=== PATIENT | male | born 1945 | race Caucasian/White ===

== ENCOUNTER 2016-10-13 15:49 | Emergency (ER) | payer MEDICARE ==
[2016-10-13] MEDS ORDERED: HYDROcodone/Acetaminophen 5/325 mg Tablet ONE (17:05)
--- NOTE | 2016-10-13 17:10 | ERRECORD ---
[facility] EMERGENCY RECORD HPI FALL (16:03 SHAN) CHIEF COMPLAINT: Patient presents for evaluation of fall, Patient presents for evaluation of tripped and fell with pain and bruising to right hand and wrist, is an area injured in the past. Occurred this am about 11:00. HISTORIAN: History provided by patient, History provided by patient's family. QUALITY: Pain is dull in nature. TIME COURSE: Sudden onset of symptoms. SEVERITY: Maximum severity of symptoms moderate, Currently symptoms are moderate. RELIEVED BY: Patient's condition relieved by nothing. ROS (16:05 SHAN) CONSTITUTIONAL: Negative constitutional review of systems. EYES: Negative eye review of systems. ENT: Negative ears, nose, throat review of systems. CARDIOVASCULAR: Negative cardiovascular review of systems. RESPIRATORY: Negative respiratory review of systems. GI: Negative gastrointestinal review of systems. MUSCULOSKELETAL: right wrist and hand pain. SKIN: Negative skin review of systems. NEUROLOGIC: Negative neurologic review of systems. NOTES: All systems reviewed, negative except as described above. PAST MEDICAL HISTORY (16:00 [facility] [place] MEDICAL HISTORY: Flu vaccine up to date, Tetanus immunization up to date, Pneumococcal vaccine up to date, Past medical history includes musculoskeletal disorder, fracture to the right radius, fracture to the right wrist, Past medical history includes cardiac history, coronary artery disease, CHF, history of diabetes, on insulin, hypertension, which has been treated, Patient is compliant, history of malignancy, primary site colon, treated with surgery, COLON RESECTION,history includes pulmonary disease, chronic obstructive pulmonary disease., SLEEP APNEA. history of hyperlipidemia, high cholesterol, currently being treated, cardiac ablation (09/2015). hx of pneumonia. MALE SURGICAL HISTORY: COLON RESECTION. , SMALL INTESTINE,COLON, RT ARM VEIN REMOVAL. PSYCHIATRIC HISTORY: No previous psychiatric history. SOCIAL HISTORY: Patient denies alcohol use, Patient denies drug use, Patient is a former tobacco user. Patient is a former tobacco user, smoked cigarettes, Patient quit smoking more than 10 years ago, Tobacco history notes: QUIT 1999,., Lives at home, with family. FAMILY HISTORY: Family history is non-contributory to this case. KNOWN ALLERGIES No Known Allergies (Unconfirmed) No Known Drug Allergies &a-1R&a+25V*p+0X*j4718C*c202B*c15G*c2P*p-0X&a-25V&a+1R Name: Sherlyn Cruz : 1945 M71 MedRec: [id number] AcctNum: [id number] Prepared: SunOct 13, 2016 17:24 by Interface Page 1 of 4 pMD [facility] EMERGENCY RECORD CURRENT MEDICATIONS (16:17 MSPE) Adult Low Dose Aspirin: TABLET : Strength - 81 mg : ORAL Patient Dose: 81 mg Oral once a day (in the evening). albuterol: AEROSOL (GRAM) : Strength - 90 mcg : INHALATION Patient Dose: 2 puff(s) Inhaler 4 times a day. fenofibrate: TABLET : Strength - 160 mg : ORAL Patient Dose: 1 tab(s) Oral once a day. furosemide: TABLET : Strength - 40 mg : ORAL Patient Dose: 1 tab(s) Oral 3 times a day. gabapentin: TABLET : Strength - 600 mg : ORAL Patient Dose: 300 mg Oral 3 times a day. hydrALAZINE: TABLET : Strength - 25 mg : ORAL Patient Dose: 2 tab(s) Oral 3 times a day. Lantus: VIAL (ML) : Strength - 100 unit/mL : SUBCUTANEOUS Patient Dose: 40 units Subcutaneous once a day (in the evening). lovastatin: TABLET : Strength - 20 mg : ORAL Patient Dose: 1 tab(s) Oral once a day (at bedtime). Spiriva with HandiHaler: CAPSULE, WITH INHALATION DEVICE : Strength - 18 mcg : INHALATION Patient Dose: 1 puff(s) Inhaler once a day. traMADol: TABLET : Strength - 50 mg : ORAL Patient Dose: 1 tab(s) Oral every 8 hours PRN. meloxicam: TABLET : Strength - 7.5 mg : ORAL Patient Dose: 1 tab(s) Oral once a day. Victoza 2-Shamar: PEN INJECTOR (ML) : Strength - 0.6 mg/0.1 mL (18 mg/3 mL) : [3 mL(s)] : SUBCUTANEOUS Patient Dose: 1.8 mg Subcutaneous once a day (in the morning). Oxygen 3L/NC 24 hours a day VITAL SIGNS VITAL SIGNS: Temp: 96.7 (Oral), Time: 10/13/2016 15:54. (15:54 MCBE) BP: 166/83, Pulse: 67, Resp: 20, O2 sat: 90 on Room Air, Time: 10/13/2016 15:57. (15:57 MCBE) Pain: 5, Time: 10/13/2016 16:05. (16:05 MCBE) Pulse: 69, Resp: 20, O2 sat: 95 on 3L Oxygen, Time: 10/13/2016 16:08. &a-1R&a+25V*p+0X*q9435Y*c202B*c15G*c2P*p-0X&a-25V&a+1R Name: Sherlyn Cruz : 1945 M71 MedRec: [id number] AcctNum: [id number] Prepared: SunOct 13, 2016 17:24 by Interface Page 2 of 4 pMD [facility] EMERGENCY RECORD (16:08 MSPE) BP: 144/86, Pulse: 68, Resp: 22, Temp: 97.9, Pain: 3, O2 sat: 94 on 3L, Time: 10/13/2016 17:13. (17:13 MCBE) PHYSICAL EXAM (16:05 SHAN) CONSTITUTIONAL: Patient afebrile, Pulse normal, Blood pressure normal, Respiratory rate normal, Normal pulse oximetry, Patient appears non toxic, Patient appears pain free, Patient alert and oriented to person, place and time, Nursing notes reviewed. HEAD: Head exam included findings of head atraumatic, normocephalic. EYES: Eye exam included findings of eyelids normal to inspection, Pupils equally round and reactive to light, Extraocular muscles intact. ENT: Pharynx exam normal, Uvula exam normal, Tonsil exam normal. NECK: Neck exam included findings of normal range of motion, Trachea midline. RESPIRATORY CHEST: Respiratory and chest exam normal. CARDIOVASCULAR: Cardiovascular exam included findings of heart rate regular rate and rhythm, Heart sounds normal. ABDOMEN MALE: Abdominal exam included findings of abdomen nontender, Bowel sounds normal. BACK: Back exam normal. UPPER EXTREMITY: Chronic deformity of right wrist; now with new bruising to hand and wrist. NEURO: Neuro exam normal. SKIN: Skin exam normal. MEDICATION ADMINISTRATION SUMMARY Drug Name: [place], Dose Ordered: 1 tab(s), Route: Oral, Status: Given, Time: 17:08 10/13/2016, Detailed record available in Medication Service section. 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 Prior history includes: Chronic obstructive pulmonary disease. Chronic cor pulmonale. Diabetes mellitus type 2. Hypertension. Dyslipidemia. Chronic venous insufficiency in the lower extremities. Ventricular tachycardia status post radiofrequency ablation. Morbid obesity. (16:07 RYLEE) History more specific to right wrist involves falling off a bull dozer in 2000, fx of right wrist; seen by physician about six days later; then infection in the area, chronic wrist deformity. x-rays today show the old deformity and also what appears to be a new fx of the right 5th metacarpal. (16:39 RYLEE) DATA REVIEWED: Xray data reviewed. (16:39 RYLEE) &a-1R&a+25V*p+0X*s2422F*c202B*c15G*c2P*p-0X&a-25V&a+1R Name: Sherlyn Cruz : 1945 M71 MedRec: [id number] AcctNum: [id number] Prepared: SunOct 13, 2016 17:24 by Interface Page 3 of 4 pMD [facility] EMERGENCY RECORD PROBLEM LIST No recorded problems DIAGNOSIS (16:43 RYLEE) FINAL: PRIMARY: right 5th metacarpal fracture, mid shaft, closed, spiral, ADDITIONAL: old complex right distal radial fx with deformity. PRESCRIPTION (16:42 RYLEE) Ultram: TABLET : 50 mg : ORAL : Quantity: 1 Unit: tab(s) Route: ORAL Schedule: every 4 hours prn Dispense: 30 Unit: tab(s) May substitute. Refills: No Refills . NOTES: No Refills. DISPOSITION PATIENT: Disposition Type: Discharge, Disposition: *Discharge Home. (16:43 RYLEE) Patient left the department. (17:18 [facility] [place] Aguilar: COREY=Carmel Lino=MARISOL Huerta, Lida MCKEE=MD Edge Stanley &a-1R&a+25V*p+0X*[id number]*c202B*c15G*c2P*p-0X&a-25V&a+1R Name: Sherlyn Cruz : 1945 M71 MedRec: [id number] AcctNum: [id number] Prepared: SunOct 13, 2016 17:24 by Interface Page 4 of 4 pMD MTDD
--- NOTE | 2016-10-13 17:12 | PICIS ---
[facility] EMERGENCY RECORD TRIAGE (15:56 MCBE) TRIAGE NOTES: wrist broke on 2000. obvious deformity. (15:56 MCBE) PATIENT: NAME: Sherlyn Cruz, AGE: 71, GENDER: male, : Sun1945, TIME OF GREET: SunOct 13, 2016 15:51, PREFERRED LANGUAGE: Sami, ETHNICITY: Not or , ECODE BILLING MAP: [facility], SSN: [id number], Zip Code: [address], KG WEIGHT: [phone], PHONE: , , , PERSON ID: [id number]. (15:56 MCBE) COMPLAINT: RIGHT WRIST INJURY//FALL. (15:56 MCBE) ADMISSION: URGENCY: 4 Non Urgent, ADMISSION SOURCE: Home, TRANSPORT: CAR, BED: ER -02. (15:56 MCBE) ASSESSMENT: Assessment: right hand/ wrist is deformed. patient states he fell this morning around 1100. denies loc or any other complications, Symptoms began 10/12/2016. (16:00 MCBE) SIRS SCORING: Heart Rate 55-109 (0), Temp range 96.8-101.1 (0), respiratory rate 12-24 (0), Mental Status altered: no (0), Infection or Suspected Infection: No. (16:00 MCBE) TRIAGE SCREENING: Patient denies suicidal ideation, Patient denies presence of domestic violence. (16:00 MCBE) PROVIDERS: TRIAGE NURSE: Carmel Lino. (15:56 MCBE) VITAL SIGNS: Temp 96.7, (Oral), Time 10/13/2016 15:54. (15:54 MCBE) BP 166/83, Pulse 67, Resp 20, O2 Sat 90, on Room Air, Time 10/13/2016 15:57. (15:57 MCBE) PREVIOUS VISIT ALLERGIES: No Known Drug Allergies. (15:56 MCBE) No Known Drug Allergies. (16:00 MCBE) KNOWN ALLERGIES No Known Allergies (Unconfirmed) No Known Drug Allergies CURRENT MEDICATIONS (16:17 MSPE) Adult Low Dose Aspirin: TABLET : Strength - 81 mg : ORAL Patient Dose: 81 mg Oral once a day (in the evening). albuterol: AEROSOL (GRAM) : Strength - 90 mcg : INHALATION Patient Dose: 2 puff(s) Inhaler 4 times a day. fenofibrate: TABLET : Strength - 160 mg : ORAL Patient Dose: 1 tab(s) Oral once a day. furosemide: TABLET : Strength - 40 mg : ORAL Patient Dose: 1 tab(s) Oral 3 times a day. gabapentin: TABLET : Strength - 600 mg : ORAL Patient Dose: 300 mg Oral 3 times a day. hydrALAZINE: &a-1R&a+25V*p+0X*y5513L*c202B*c15G*c2P*p-0X&a-25V&a+1R Name: Sherlyn Cruz : 1945 M71 MedRec: [id number] AcctNum: [id number] Prepared: SunOct 13, 2016 17:29 by Interface Page 1 of 7 pMD [facility] EMERGENCY RECORD TABLET : Strength - 25 mg : ORAL Patient Dose: 2 tab(s) Oral 3 times a day. Lantus: VIAL (ML) : Strength - 100 unit/mL : SUBCUTANEOUS Patient Dose: 40 units Subcutaneous once a day (in the evening). lovastatin: TABLET : Strength - 20 mg : ORAL Patient Dose: 1 tab(s) Oral once a day (at bedtime). Spiriva with HandiHaler: CAPSULE, WITH INHALATION DEVICE : Strength - 18 mcg : INHALATION Patient Dose: 1 puff(s) Inhaler once a day. traMADol: TABLET : Strength - 50 mg : ORAL Patient Dose: 1 tab(s) Oral every 8 hours PRN. meloxicam: TABLET : Strength - 7.5 mg : ORAL Patient Dose: 1 tab(s) Oral once a day. Victoza 2-Shamar: PEN INJECTOR (ML) : Strength - 0.6 mg/0.1 mL (18 mg/3 mL) : [3 mL(s)] : SUBCUTANEOUS Patient Dose: 1.8 mg Subcutaneous once a day (in the morning). Oxygen 3L/NC 24 hours a day VITAL SIGNS VITAL SIGNS: Temp: 96.7 (Oral), Time: 10/13/2016 15:54. (15:54 MCBE) BP: 166/83, Pulse: 67, Resp: 20, O2 sat: 90 on Room Air, Time: 10/13/2016 15:57. (15:57 MCBE) Pain: 5, Time: 10/13/2016 16:05. (16:05 MCBE) Pulse: 69, Resp: 20, O2 sat: 95 on 3L Oxygen, Time: 10/13/2016 16:08. (16:08 MSPE) BP: 144/86, Pulse: 68, Resp: 22, Temp: 97.9, Pain: 3, O2 sat: 94 on 3L, Time: 10/13/2016 17:13. (17:13 MCBE) NURSING ASSESSMENT: EXTREMITY UPPER (16:03 MCBE) CONSTITUTIONAL: Complex assessment performed, Patient arrives ambulatory, Gait steady, History obtained from patient, Patient appears comfortable, Patient cooperative, Patient alert, Oriented to person, place and time, Skin warm, Skin dry, Skin normal in color, Mucous membranes pink, Mucous membranes moist, Patient is well-groomed. PAIN: Onset of pain 10/13/2016 1100, constant, on a scale 0-10 patient rates pain as 5. LEFT UPPER EXTREMITY: Left upper extremity assessment findings include capillary refill less than 2 seconds, Skin color normal to hand, Skin temperature to hand warm, Distal sensation intact, Muscle tone normal, Inspection findings include: No pressure ulcer to the &a-1R&a+25V*p+0X*q1069K*c202B*c15G*c2P*p-0X&a-25V&a+1R Name: Sherlyn Cruz : 1945 M71 MedRec: [id number] AcctNum: [id number] Prepared: SunOct 13, 2016 17:29 by Interface Page 2 of 7 pMD [facility] EMERGENCY RECORD shoulder, Inspection findings include no pressure ulcer to the elbow, Inspection findings include no pressure ulcer. RIGHT UPPER EXTREMITY: Right upper extremity assessment findings include capillary refill less than 2 seconds, Skin color normal to hand, Skin temperature to hand warm, Distal sensation intact, Muscle tone normal, Inspection findings include deformity, to WRSIT, HAND, Inspection findings include: No pressure ulcer to the shoulder, Inspection findings include no pressure ulcer to the elbow, Inspection findings include no pressure ulcer, Inspection findings include signs of trauma, to WRIST, HAND. NURSING PROCEDURE: DISCHARGE NOTE (17:13 MCBE) DISCHARGE: Patient discharged to home, ambulating without assistance, family driving, accompanied by other family member, Summary of Care printed/ provided, Discharge instructions given to patient, Discharge instructions given to daughter, Simple or moderate discharge teaching performed, by CARMEL DAMON, EXPLAINED DISCHARGE INSTRUCTIONS. INSTRUCTED TO RETURN IF S/S WORSEN. GAVE INFORMATION FOR ORTHO FOLLOW-UP. BOTH PATIENT AND DAUGHTER VERBALLY ACKNOWLEDGED., Prescriptions given and instructions on side effects given, Name of prescription(s) given: ULTRAM, Above person(s) verbalized understanding of discharge instructions and follow-up care, Patient treated and evaluated by physician, Notes: DAUGHTER SIGNED PATIENT OUT. BELONGINGS: Belongings and valuables with patient upon arrival to the Emergency Department include:, Belongings and valuables with patient at time of discharge include:, hat, pants, shirt, shoes, socks, wallet, Belongings remain with patient, Valuables remain with patient, Notes: PATIENT LEFT WITH WIRST AND HAND SPLINTED AND PLACED IN A SLING. VITAL SIGNS: BP: 144, / 86, Pulse: 68, Resp: 22, Temp: 97.9, Pain: 3, O2 sat: 94, on: 3L, Time: 1713. NURSING PROCEDURE: NURSE NOTES (16:03 MCBE) NURSES NOTES: Notes: ICE PACK GIVEN TO PATIENT TO PLACE ON RIGHT HAND. NURSING PROCEDURE: OXYGEN THERAPY (16:02 MCBE) PATIENT IDENTIFIER: Patient actively involved in identification process, Patient's identity verified by patient stating name, Patient's identity verified by patient stating date, Patient's identity verified by hospital ID bracelet. OXYGEN THERAPY: Oxygen therapy indicated for desaturation, 3L oxygen given, via nasal cannula applied, Applied by LIDA DAMON. NURSING PROCEDURE: SPLINTING PATIENT IDENTIFIER: Patient actively involved in identification process, Patient's identity verified by patient stating name, Patient's identity verified by patient stating date, Patient's identity verified by hospital ID bracelet, Patient's identity &a-1R&a+25V*p+0X*w3940S*c202B*c15G*c2P*p-0X&a-25V&a+1R Name: Sherlyn Cruz : 1945 M71 MedRec: [id number] AcctNum: [id number] Prepared: SunOct 13, 2016 17:29 by Interface Page 3 of 7 pMD [facility] EMERGENCY RECORD verified by family member. (17:09 BWIS) SPLINTING: Splint applied to, the right wrist, by Dr Edge, 4 inch uhgh wrap applied, Orthoglass splint applied by Dr Edge, secured with HUGH wrap, Notes: Arm sling applied by Jacquie Cho after splinting done. (17:00 MSPE) Splinting indicated for fracture care, Cast applied, to the right wrist, to hand, by saad. (17:09 BWIS) ORDER DETAILS Order Name: ERRT Oxygen Usage ER, Status: Active, Time: 16:02 10/13/2016, User: COREY, - Ordered for: MD Edge Stanley, - Entered by: Carmel Lino - Josemanuel Oct 13, 2016 16:02, - Quantity: 1, Order Name: splint right hand and wrist; apply sling, Status: Done, Time: 16:56 10/13/2016, User: COREY, - Ordered for: MD Edge Stanley, - Entered by: MD Edge Stanley - Josemanuel Oct 13, 2016 16:41, - Quantity: 1, Order Name: XR Hand Rt 3 View STANDARD, Status: Active, Time: 16:01 10/13/2016, User: COREY, - Ordered for: MD Edge Stanley, - Entered by: Carmel Lino - Josemanuel Oct 13, 2016 16:01, - Quantity: 1, Order Name: XR Wrist 3 Rt View STANDARD, Status: Active, Time: 16:01 10/13/2016, User: COREY, - Ordered for: MD Edge Stanley, - Entered by: Carmel Lino Oct 13, 2016 16:01, - Quantity: 1. MEDICATION ADMINISTRATION SUMMARY Drug Name: [place], Dose Ordered: 1 tab(s), Route: Oral, Status: Given, Time: 17:08 10/13/2016, Detailed record available in Medication Service section. MEDICATION SERVICE (17:08 [facility]) [place]: Order: [place] (hydrocodone bitartrate/acetaminophen) - Dose: 1 tab(s) : Oral Schedule: Now Ordered by: Mando Edge MD Entered by: Mando Edge MD SunOct 13, 2016 17:04 Documented as given by: Carmel Lino SunOct 13, 2016 17:08 Patient, Medication, Dose, Route and Time verified prior to administration. Amount given: 1 tab, Site: Medication administered P.O., Patient appears Awake and alert- acceptable, Correct patient, time, route, dose and medication confirmed prior to administration, Patient advised of actions and side-effects prior to administration, &a-1R&a+25V*p+0X*c2855X*c202B*c15G*c2P*p-0X&a-25V&a+1R Name: Sherlyn Cruz : 1945 M71 MedRec: [id number] AcctNum: [id number] Prepared: SunOct 13, 2016 17:29 by Interface Page 4 of 7 pMD [facility] EMERGENCY RECORD Allergies confirmed and medications reviewed prior to administration, Patient in position of comfort, Side rails up, Cart in lowest position, Family at bedside, Call light in reach. HPI FALL (16:03 [facility]) CHIEF COMPLAINT: Patient presents for evaluation of fall, Patient presents for evaluation of tripped and fell with pain and bruising to right hand and wrist, is an area injured in the past. Occurred this am about 11:00. HISTORIAN: History provided by patient, History provided by patient's family. QUALITY: Pain is dull in nature. TIME COURSE: Sudden onset of symptoms. SEVERITY: Maximum severity of symptoms moderate, Currently symptoms are moderate. RELIEVED BY: Patient's condition relieved by nothing. ROS (16:05 SHAN) CONSTITUTIONAL: Negative constitutional review of systems. EYES: Negative eye review of systems. ENT: Negative ears, nose, throat review of systems. CARDIOVASCULAR: Negative cardiovascular review of systems. RESPIRATORY: Negative respiratory review of systems. GI: Negative gastrointestinal review of systems. MUSCULOSKELETAL: right wrist and hand pain. SKIN: Negative skin review of systems. NEUROLOGIC: Negative neurologic review of systems. NOTES: All systems reviewed, negative except as described above. PAST MEDICAL HISTORY (16:00 [facility] [place] MEDICAL HISTORY: Flu vaccine up to date, Tetanus immunization up to date, Pneumococcal vaccine up to date, Past medical history includes musculoskeletal disorder, fracture to the right radius, fracture to the right wrist, Past medical history includes cardiac history, coronary artery disease, CHF, history of diabetes, on insulin, hypertension, which has been treated, Patient is compliant, history of malignancy, primary site colon, treated with surgery, COLON RESECTION,history includes pulmonary disease, chronic obstructive pulmonary disease., SLEEP APNEA. history of hyperlipidemia, high cholesterol, currently being treated, cardiac ablation (09/2015). hx of pneumonia. MALE SURGICAL HISTORY: COLON RESECTION. , SMALL INTESTINE,COLON, RT ARM VEIN REMOVAL. PSYCHIATRIC HISTORY: No previous psychiatric history. SOCIAL HISTORY: Patient denies alcohol use, Patient denies drug use, Patient is a former tobacco user. Patient is a former tobacco user, smoked cigarettes, Patient quit smoking more than 10 years ago, Tobacco history notes: QUIT 1999,., Lives at home, with family. FAMILY HISTORY: Family history is non-contributory to this case. &a-1R&a+25V*p+0X*a6621I*c202B*c15G*c2P*p-0X&a-25V&a+1R Name: Sherlyn Cruz : 1945 M71 MedRec: [id number] AcctNum: [id number] Prepared: SunOct 13, 2016 17:29 by Interface Page 5 of 7 pMD [facility] EMERGENCY RECORD PHYSICAL EXAM (16:05 SHAN) CONSTITUTIONAL: Patient afebrile, Pulse normal, Blood pressure normal, Respiratory rate normal, Normal pulse oximetry, Patient appears non toxic, Patient appears pain free, Patient alert and oriented to person, place and time, Nursing notes reviewed. HEAD: Head exam included findings of head atraumatic, normocephalic. EYES: Eye exam included findings of eyelids normal to inspection, Pupils equally round and reactive to light, Extraocular muscles intact. ENT: Pharynx exam normal, Uvula exam normal, Tonsil exam normal. NECK: Neck exam included findings of normal range of motion, Trachea midline. RESPIRATORY CHEST: Respiratory and chest exam normal. CARDIOVASCULAR: Cardiovascular exam included findings of heart rate regular rate and rhythm, Heart sounds normal. ABDOMEN MALE: Abdominal exam included findings of abdomen nontender, Bowel sounds normal. BACK: Back exam normal. UPPER EXTREMITY: Chronic deformity of right wrist; now with new bruising to hand and wrist. NEURO: Neuro exam normal. SKIN: Skin exam normal. EVENTS TRANSFER: Triage to Emergency Emergency Room -02. (SunOct 13, 2016 15:56 MCBE) Removed from Emergency Emergency Room -02. 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 Prior history includes: Chronic obstructive pulmonary disease. Chronic cor pulmonale. Diabetes mellitus type 2. Hypertension. Dyslipidemia. Chronic venous insufficiency in the lower extremities. Ventricular tachycardia status post radiofrequency ablation. Morbid obesity. (16:07 SHAN) History more specific to right wrist involves falling off a bull dozer in 2000, fx of right wrist; seen by physician about six days later; then infection in the area, chronic wrist deformity. x-rays today show the old deformity and also what appears to be a new fx of the right 5th metacarpal. (16:39 SHAN) DATA REVIEWED: Xray data reviewed. (16:39 SHAN) PROBLEM LIST No recorded problems DIAGNOSIS (16:43 SHAN) &a-1R&a+25V*p+0X*u7528R*c202B*c15G*c2P*p-0X&a-25V&a+1R Name: Sherlyn Cruz : 1945 M71 MedRec: [id number] AcctNum: [id number] Prepared: SunOct 13, 2016 17:29 by Interface Page 6 of 7 pMD [facility] EMERGENCY RECORD FINAL: PRIMARY: right 5th metacarpal fracture, mid shaft, closed, spiral, ADDITIONAL: old complex right distal radial fx with deformity. DISPOSITION PATIENT: Disposition Type: Discharge, Disposition: *Discharge Home. (16:43 SHAN) Patient left the department. (17:18 [facility] [place] INSTRUCTION (16:44 SHAN) DISCHARGE: METACARPAL FRACTURE CLOSED. SPECIAL: 1. pain medication if needed 2. ice packs as tolerated 3. try to keep splint on 4. followup with orthopedics; Dr. Braeden Cordova is personal lines advisor. PRESCRIPTION (16:42 SHAN) Ultram: TABLET : 50 mg : ORAL : Quantity: 1 Unit: tab(s) Route: ORAL Schedule: every 4 hours prn Dispense: 30 Unit: tab(s) May substitute. Refills: No Refills . NOTES: No Refills. IMAGING (17:17 COREY) *DISCHARGE INSTRUCTIONS RECEIPT: Image captured from scanner. *SUPPLY CHARGE SHEET: Image captured from scanner. ADMIN (16:44 RYLEE) DIGITAL SIGNATURE: MD Edge Stanley. Aguilar: KEN=BRITTA Johnson Bobbie MCBE=Carmel Lino MSPE=MARISOL Huerta, Lida MCKEE=MD Edge Stanley &a-1R&a+25V*p+0X*n4571M*c202B*c15G*c2P*p-0X&a-25V&a+1R Name: Sherlyn Cruz : 1945 M71 MedRec: [id number] AcctNum: [id number] Prepared: SunOct 13, 2016 17:29 by Interface Page 7 of 7 pMD MTDD
--- NOTE | 2016-10-13 19:45 | RAD ---
FOUR VIEWS OF THE RIGHT WRIST 10/13/16 HISTORY: Right hand and wrist deformity. Patient states he fell this morning around 1100 hours. There is evidence of a remote fracture deformity involving the distal right radius with linear lucen cy seen likely related to sites of prior hardware. Remote fracture of the ulnar styloid process is s een. Due to fracture deformity of the right radius there is foreshortening of the radius and proxima l migration of the carpus in relation to the distal fibula. No obvious acute fracture is seen. There is no evidence of a dislocation . Subcutaneous soft tissue swelling is seen about the wrist. IMPRESSION: There is a fracture involving the left fifth metacarpal of which the exact age is indeterminate, but there is suggestion this fracture may actually be a more acute fracture. Correlation for point tend erness at the level of the fifth metacarpal is recommended. There is overlying subcutaneous soft tis yazan swelling in this region. IMPRESSION: 1. Oblique fracture with slight separation involving the right fifth metacarpal. This fracture is probably more acute in origin. There is overlying subcutaneous soft tissue swelling. 2. Remote fracture and deformity involving the distal right radius with foreshortening of the r adius. There is subcutaneous soft tissue swelling about the wrist. POS: [facility]
--- NOTE | 2016-10-13 19:49 | RAD ---
THREE VIEWS OF THE RIGHT HAND 10/13/16 HISTORY: Right hand and wrist deformity after falling this morning around 1100 hours. FINDINGS: There is an oblique fracture involving the distal right fifth metacarpal which probably represents a more recent and probably acute fracture although the exact age is difficult to determinate. There i s overlying subcutaneous soft tissue swelling present. No additional acute fracture is seen. There i s no dislocation. Remote fracture deformity of the distal radius with foreshortening of the radius i s again present. Remote fracture of the ulnar styloid process is present. There is a tiny metallic foreign body seen at the dorsal aspect of the small finger at the level of the proximal interphalangeal joint. IMPRESSION: 1. Minimally displaced oblique fracture involving the right fifth metacarpal which appears more acute, and there is a large amount of overlying subcutaneous soft tissue swelling. 2. Remote fracture and deformity of the distal right radius. 3. Corticated osseous density adjacent to the base of the proximal phalanx middle finger which probably represent a remote avulsion fracture. 4. Tiny metallic foreign body dorsal aspect of the right small finger. POS: [facility]
== END 2016-10-13 17:13 | disposition home or self-care (01) ==
LOC: NAV ERS 15:49
DX: S62.326A Displaced fracture of shaft of fifth metacarpal bone, right hand, initial encounter for closed fracture (principal); I11.0 Hypertensive heart disease with heart failure; I50.9 Heart failure, unspecified; E11.9 Type 2 diabetes mellitus without complications; E78.5 Hyperlipidemia, unspecified; Z87.81 Personal history of (healed) traumatic fracture; Z79.4 Long term (current) use of insulin; Z79.84 Long term (current) use of oral hypoglycemic drugs; Z79.899 Other long term (current) drug therapy; X58.XXXA Exposure to other specified factors, initial encounter
CPT/HCPCS: 29125

== ENCOUNTER 2016-10-17 09:23 | Outpatient (CLI) | payer MEDICARE ==
[2016-10-17 12:53] LABS: Hemoglobin A1c 7.4 % (4.0-6.0)
== END 2016-10-17 09:24 | disposition home or self-care (01) ==
LOC: NAVSJIPCSP 09:23
PROVIDERS: ATTEND Internal Medicine
DX: E78.5 Hyperlipidemia, unspecified (principal); E11.65 Type 2 diabetes mellitus with hyperglycemia; Z79.899 Other long term (current) drug therapy
CPT/HCPCS: 36415; 80061; 83036

== ENCOUNTER 2017-01-21 20:20 | Emergency (ER) | payer MEDICARE ==
[2017-01-21 21:42] LABS: #Basophils 0.1 thou/uL (0.0-0.2); #Eosinphils 0.2 thou/uL (0.0-0.7); #Lymphocytes 1.2 thou/uL (1.20-3.40); #Monocytes 0.8 thou/uL (0.11-0.59); #Neutrophils 7.5 thou/uL (1.40-6.50); %Basophils 0.9 % (0.0-1.0); %Eosinophils 2.5 % (0.0-10.0); %Lymphocytes 11.8 % (21.0-51.0); %Monocytes 8.1 % (0.0-10.0); %Neutrophils 76.6 % (42.0-75.0); Hemoglobin 12.4 g/dL (14.0-18.0); Mean Corpuscular HGB CONC 31.8 g/dL (32.0-36.0); Mean Corpuscular Hemoglobin 27.2 pg (27.0-31.0); Mean Corpuscular Volume 85.5 fl (80.0-94.0); Mean Platelet Volume 6.4 fL (7.4-10.4); Platelet Count 145 thou/uL (130-400); RBC Distribution Width 12.6 % (11.5-14.5); Red Blood Cell (RBC) Count 4.58 mill/uL (4.70-6.10); White Blood Cell (WBC) Count 9.8 thou/uL (4.8-10.8)
[2017-01-21] MEDS ORDERED: Fentanyl 100 MCG/2 ML VIAL ONE (21:51)
[2017-01-21] MEDS ORDERED: Ondansetron HCl/PF 4 MG/2 ML Vial ONE (21:51)
[2017-01-21 21:54] LABS: Anion Gap 15 mmol/L (10-20); BUN (Urea Nitrogen) 24 mg/dL (8.4-25.7); Calc. Creatinine Clearance 0 mL/min (70-130); Calcium 8.7 mg/dL (7.8-10.44); Carbon Dioxide 29 mmol/L (23-31); Chloride 98 mmol/L (98-107); Estimated GFR-MDRD 42; Glucose 152 mg/dL (83-110); Potassium 4.1 mmol/L (3.5-5.1); Sodium 138 mmol/L (136-145)
[2017-01-21] MEDS ORDERED: cefTRIAXone\\ROCEPHIN 2 GM VIAL ONE (22:01)
[2017-01-21] MEDS ORDERED: Sodium Chloride 0.9% 250 ML 250 ML ONE (22:01)
[2017-01-21] MEDS ORDERED: Sodium Chloride 0.9% 100 ML ONE (22:01)
[2017-01-21] MEDS ORDERED: metroNIDAZOLE 500 MG/100 ML BAG ONE (22:01)
--- NOTE | 2017-01-21 22:21 | RAD ---
RIGHT FOOT THREE VIEWS: History: Puncture wound to the bottom of the foot. Patient stepped on something and now has pain. Comparison: None. FINDINGS: Lisfranc joint alignment is maintained. Mild loss of interphalangeal joint space height due to degen erative change. There are no fractures. There is severe degenerative change involving the navicular cuneiform space. Small spur of the calcaneus at the plantar aponeurosis site. There is some vascular calcification. There is a small lucency involving the plantar soft tissues at the midfoot measuring 0.6 cm. Small f ocus of air is suspected which may be due to laceration. Small infected fluid collection with air ca nnot be completely excluded. No radiopaque foreign body. IMPRESSION: 1. Lucent focus in plantar soft tissues as above. 2. No radiopaque foreign body. 3. There appear to be chronic degenerative change involving the midfoot. POS: [facility]
[2017-01-21] MEDS ORDERED: HYDROcodone/Acetaminophen 10/325 mg Tablet ONE (23:07)
== END 2017-01-22 01:15 | disposition home or self-care (01) ==
LOC: NAV ERS 20:20
DX: L03.115 Cellulitis of right lower limb (principal); E11.9 Type 2 diabetes mellitus without complications; I11.0 Hypertensive heart disease with heart failure; I50.9 Heart failure, unspecified; J44.9 Chronic obstructive pulmonary disease, unspecified; E78.5 Hyperlipidemia, unspecified; E78.00 Pure hypercholesterolemia, unspecified; Z87.891 Personal history of nicotine dependence; Z79.4 Long term (current) use of insulin; Z79.899 Other long term (current) drug therapy
CPT/HCPCS: 80048; 83605; 85025; 87040; 96365; 96367; 96375; J0696; J2405; J3010; J3370; J7050

== ENCOUNTER 2017-01-23 08:51 | Outpatient (CLI) | payer MEDICARE ==
[2017-01-23 12:47] LABS: Hemoglobin A1c 6.7 % (4.0-6.0)
[2017-01-23 12:51] LABS: Anion Gap 16 mmol/L (10-20); BUN (Urea Nitrogen) 27 mg/dL (8.4-25.7); Calc. Creatinine Clearance 0 mL/min (70-130); Carbon Dioxide 32 mmol/L (23-31); Cardiac Risk 3.1 (Less than 4.5); Chloride 97 mmol/L (98-107); Cholesterol 111 mg/dL (< 200 Desired); Estimated GFR-MDRD 44; Glucose 81 mg/dL (83-110); HDL Cholesterol 36 mg/dL (>60 Neg Risk); LDL Cholesterol, Calculated 58 mg/dL; Potassium 4.9 mmol/L (3.5-5.1); Sodium 140 mmol/L (136-145); Triglycerides 87 mg/dL (Less than 150)
== END 2017-01-23 08:52 | disposition home or self-care (01) ==
LOC: NAVSJIPCSP 08:51
PROVIDERS: ATTEND Internal Medicine
DX: E11.41 Type 2 diabetes mellitus with diabetic mononeuropathy (principal); I12.9 Hypertensive chronic kidney disease with stage 1 through stage 4 chronic kidney disease, or unspecified chronic kidney disease; N18.2 Chronic kidney disease, stage 2 (mild); Z79.899 Other long term (current) drug therapy
CPT/HCPCS: 36415; 80048; 80061; 83036

== ENCOUNTER 2017-04-24 08:24 | Outpatient (CLI) | payer MEDICARE ==
[2017-04-24 12:52] LABS: #Basophils 0.1 thou/uL (0.0-0.2); #Eosinphils 0.2 thou/uL (0.0-0.7); #Lymphocytes 1.4 thou/uL (1.20-3.40); #Monocytes 0.7 thou/uL (0.11-0.59); #Neutrophils 7.3 thou/uL (1.40-6.50); %Basophils 0.7 % (0.0-1.0); %Eosinophils 2.5 % (0.0-10.0); %Lymphocytes 14.2 % (21.0-51.0); %Monocytes 7.5 % (0.0-10.0); %Neutrophils 75.1 % (42.0-75.0); Hemoglobin 13.8 g/dL (14.0-18.0); Mean Corpuscular HGB CONC 31.5 g/dL (32.0-36.0); Mean Corpuscular Hemoglobin 27.1 pg (27.0-31.0); Mean Platelet Volume 5.9 fL (7.4-10.4); Platelet Count 175 thou/uL (130-400); RBC Distribution Width 12.2 % (11.5-14.5); Red Blood Cell (RBC) Count 5.09 mill/uL (4.70-6.10); White Blood Cell (WBC) Count 9.7 thou/uL (4.8-10.8)
[2017-04-24 13:02] LABS: ALT (SGPT) 20 U/L (8-55); AST (SGOT) 25 U/L (5-34); Albumin 4.1 g/dL (3.4-4.8); Alkaline Phosphatase 48 U/L (40-150); Anion Gap 18 mmol/L (10-20); BUN (Urea Nitrogen) 25 mg/dL (8.4-25.7); Bilirubin, Total 0.5 mg/dL (0.2-1.2); Calc. Creatinine Clearance 0 mL/min (70-130); Calcium 9.1 mg/dL (7.8-10.44); Carbon Dioxide 27 mmol/L (23-31); Cardiac Risk 3.1 (Less than 4.5); Chloride 98 mmol/L (98-107); Cholesterol 118 mg/dl (< 200 Desired); Estimated GFR-MDRD 45; Globulin 2.5 g/dL (2.4-3.5); Glucose 101 mg/dL (83-110); HDL Cholesterol 38 mg/dL (>60 Neg Risk); LDL Cholesterol, Calculated 62 mg/dL; Potassium 4.3 mmol/L (3.5-5.1); Protein, Total 6.6 g/dL (5.8-8.1); Sodium 139 mmol/L (136-145); Triglycerides 90 mg/dL (Less than 150)
== END 2017-04-24 08:25 | disposition home or self-care (01) ==
LOC: NAVSJIPCSP 08:24
PROVIDERS: ATTEND Internal Medicine
DX: Z12.5 Encounter for screening for malignant neoplasm of prostate (principal); I11.0 Hypertensive heart disease with heart failure; I50.9 Heart failure, unspecified; E11.65 Type 2 diabetes mellitus with hyperglycemia; E78.5 Hyperlipidemia, unspecified; Z79.899 Other long term (current) drug therapy
CPT/HCPCS: 36415; 80053; 80061; 83036; 85025; G0103

== ENCOUNTER 2017-08-25 19:01 | Emergency (ER) | payer MEDICARE ==
[2017-08-25 19:59] LABS: #Basophils 0.1 thou/uL (0.0-0.2); #Eosinphils 0.1 thou/uL (0.0-0.7); #Lymphocytes 0.5 thou/uL (1.20-3.40); #Monocytes 0.9 thou/uL (0.11-0.59); #Neutrophils 7.3 thou/uL (1.40-6.50); %Eosinophils 1.6 % (0.0-10.0); %Lymphocytes 5.9 % (21.0-51.0); %Monocytes 9.6 % (0.0-10.0); %Neutrophils 81.9 % (42.0-75.0); Hemoglobin 13.2 g/dL (14.0-18.0); Mean Corpuscular HGB CONC 30.6 g/dL (32.0-36.0); Mean Corpuscular Hemoglobin 27.7 pg (27.0-31.0); Mean Corpuscular Volume 90.6 fl (80.0-94.0); Mean Platelet Volume 6.6 fL (7.4-10.4); Platelet Count 137 thou/uL (130-400); Red Blood Cell (RBC) Count 4.75 mill/uL (4.70-6.10); White Blood Cell (WBC) Count 8.9 thou/uL (4.8-10.8)
[2017-08-25] MEDS ORDERED: traMADol HCl 50 MG TAB ONE (20:00)
[2017-08-25 20:12] LABS: ALT (SGPT) 26 U/L (8-55); AST (SGOT) 31 U/L (5-34); Albumin 3.9 g/dL (3.4-4.8); Alkaline Phosphatase 51 U/L (40-150); Anion Gap 13 mmol/L (10-20); BUN (Urea Nitrogen) 28 mg/dL (8.4-25.7); Bilirubin, Total 0.5 mg/dL (0.2-1.2); Calc. Creatinine Clearance 0 mL/min (70-130); Calcium 8.9 mg/dL (7.8-10.44); Carbon Dioxide 32 mmol/L (23-31); Chloride 95 mmol/L (98-107); Estimated GFR-MDRD 42; Globulin 2.8 g/dL (2.4-3.5); Glucose 178 mg/dL (83-110); Potassium 4.1 mmol/L (3.5-5.1); Protein, Total 6.7 g/dL (5.8-8.1); Sodium 136 mmol/L (136-145)
[2017-08-25] MEDS ORDERED: Sulfameth/Trimethoprim DS 800-160mg TAB ONE (20:31)
--- NOTE | 2017-08-25 20:56 | RAD ---
THREE VIEWS OF THE RIGHT FOOT 08/25/17 INDICATION: Right foot wound. FINDINGS/IMPRESSION: The toes are held in hyperextension at the MTP joints slightly limiting the evaluation. There is scattered degenerative changes seen within the midfoot which can be related to osteoarthrosi s or early neuropathic joint. The osteoarthritic change involving the midfoot is not appreciably tomlinson ged from the comparison dated 03/16/17. No definite acute fracture or subluxation is grossly evident. Lisfranc alignment is preserved. Prominent plantar based wound underlying the midfoot. Enthesopathic change seen off the calcaneus. POS: [facility]
== END 2017-08-25 20:50 | disposition home or self-care (01) ==
LOC: NAV ERS 19:01
DX: L03.115 Cellulitis of right lower limb (principal); E11.621 Type 2 diabetes mellitus with foot ulcer; L97.419 Non-pressure chronic ulcer of right heel and midfoot with unspecified severity; I25.10 Atherosclerotic heart disease of native coronary artery without angina pectoris; I11.0 Hypertensive heart disease with heart failure; I50.9 Heart failure, unspecified; J44.9 Chronic obstructive pulmonary disease, unspecified; G47.30 Sleep apnea, unspecified; E78.5 Hyperlipidemia, unspecified; Z85.038 Personal history of other malignant neoplasm of large intestine; Z87.891 Personal history of nicotine dependence; Z79.4 Long term (current) use of insulin; Z79.899 Other long term (current) drug therapy; Z79.82 Long term (current) use of aspirin
CPT/HCPCS: 80053; 83605; 85025; 86140; 87070; 87077; 87205; 94760

== ENCOUNTER 2017-12-20 19:25 | Emergency (ER) | payer MEDICARE ==
[2017-12-20 20:11] LABS: #Basophils 0.1 thou/uL (0.0-0.2); #Lymphocytes 0.7 thou/uL (1.20-3.40); #Monocytes 1.3 thou/uL (0.11-0.59); #Neutrophils 10.8 thou/uL (1.40-6.50); %Basophils 0.5 % (0.0-1.0); %Eosinophils 0.2 % (0.0-10.0); %Lymphocytes 5.1 % (21.0-51.0); %Monocytes 9.8 % (0.0-10.0); %Neutrophils 84.5 % (42.0-75.0); Hemoglobin 12.5 g/dL (14.0-18.0); Mean Corpuscular HGB CONC 31.3 g/dL (32.0-36.0); Mean Corpuscular Volume 86.2 fl (80.0-94.0); Mean Platelet Volume 6.7 fL (7.4-10.4); Platelet Count 181 thou/uL (130-400); RBC Distribution Width 13.4 % (11.5-14.5); Red Blood Cell (RBC) Count 4.62 mill/uL (4.70-6.10); White Blood Cell (WBC) Count 12.8 thou/uL (4.8-10.8)
[2017-12-20] MEDS ORDERED: Furosemide 20 MG/2 ML VIAL ONE (20:16)
[2017-12-20 20:28] LABS: ALT (SGPT) 30 U/L (8-55); AST (SGOT) 38 U/L (5-34); Albumin 3.5 g/dL (3.4-4.8); Alkaline Phosphatase 53 U/L (40-150); Anion Gap 19 mmol/L (10-20); BUN (Urea Nitrogen) 62 mg/dL (8.4-25.7); Bilirubin, Total 0.4 mg/dL (0.2-1.2); Calc. Creatinine Clearance 0 mL/min (70-130); Calcium 8.6 mg/dL (7.8-10.44); Carbon Dioxide 28 mmol/L (23-31); Chloride 95 mmol/L (98-107); Estimated GFR-MDRD 16; Globulin 3.3 g/dL (2.4-3.5); Glucose 364 mg/dL (83-110); Potassium 4.7 mmol/L (3.5-5.1); Protein, Total 6.8 g/dL (5.8-8.1); Sodium 137 mmol/L (136-145)
[2017-12-20 20:30] LABS: CKMB 6.5 ng/mL (0-6.6)
[2017-12-20 20:31] LABS: Critical Call Chem Troponin I 0; Troponin I 1.012 ng/mL (< 0.028)
[2017-12-20] MEDS ORDERED: Fentanyl 100 MCG/2 ML VIAL ONE (20:38)
[2017-12-20 21:32] LABS: Bilirubin Small (Negative); Blood, Urine Negative (Negative); Glucose, Urine (Dipstick) Negative (Negative); Leukocyte Negative (Negative); Nitrite Negative (Negative); Protein, Urine (Dipstick) 30 mg/dL (Neg-Trace)
[2017-12-20 22:01] LABS: Clarity SL HAZY (Clear)
[2017-12-20 22:02] LABS: Crystals/HPF RARE AMORPH URATES HPF (Negative); RBC/HPF 0-3 HPF (0-3)
--- NOTE | 2017-12-20 22:02 | RAD ---
SINGLE VIEW OF THE CHEST: 12/20/17 COMPARISON: 11/26/15 HISTORY: Elevated glucose. Dyspnea. FINDINGS: Single view of the chest shows an enlarged cardiomediastinal silhouette. This may be secondary to the patient's large body habitus. There is no evidence of consolidation, mass, or pleural effusion. IMPRESSION: Cardiomegaly. POS: [facility]
[2017-12-20 22:03] LABS: Specific Gravity, Urine 1.018 (1.005-1.030)
--- NOTE | 2017-12-20 22:07 | RAD ---
SINGLE VIEW OF THE CHEST: 12/20/17 COMPARISON: 12/20/17 HISTORY: Endotracheal tube placement for respiratory failure. FINDINGS: Single view of the chest shows an enlarged but stable cardiomediastinal silhouette. There is an endot cipriano tube with its between the clavicles. There may be an NG tube, but this cannot be seen passed the upper mediastinum. IMPRESSION: 1. Appropriate position of the endotracheal tube. 2. Cardiomegaly. POS: [facility]
== END 2017-12-20 21:04 | disposition short-term general hospital (02) ==
LOC: NAV ERS 19:25
DX: I11.0 Hypertensive heart disease with heart failure (principal); I50.9 Heart failure, unspecified; N19 Unspecified kidney failure; S81.802D Unspecified open wound, left lower leg, subsequent encounter; S81.801D Unspecified open wound, right lower leg, subsequent encounter; E11.9 Type 2 diabetes mellitus without complications; I25.10 Atherosclerotic heart disease of native coronary artery without angina pectoris; J44.9 Chronic obstructive pulmonary disease, unspecified; G47.30 Sleep apnea, unspecified; E78.5 Hyperlipidemia, unspecified; Z87.891 Personal history of nicotine dependence; Z79.82 Long term (current) use of aspirin; Z79.899 Other long term (current) drug therapy; Z79.4 Long term (current) use of insulin; X58.XXXD Exposure to other specified factors, subsequent encounter
CPT/HCPCS: 31500; 36416; 51702; 71045; 80053; 81003; 81015; 82553; 83605; 83880; 84484; 85025; 87086; 93005; 94760; 96374; 96375; B4083; J1940; J3010

== ENCOUNTER 2018-01-08 16:37 | Inpatient (IN) | payer MEDICARE ==
[2018-01-08 18:03] VITALS: BMI 44.3
[2018-01-08] MEDS ORDERED: Acetaminophen 325 MG TAB PO PRN (18:42)
[2018-01-08] MEDS ORDERED: HYDROcodone/Acetaminophen 5/325 mg Tablet PO PRN (18:45)
[2018-01-08] MEDS ORDERED: HumaLOG 300 UNITS/3 ML VIAL SC PRN (18:52)
[2018-01-08] MEDS ORDERED: Dextrose 5% in Water 1,000 ML IV PRN (18:52)
[2018-01-08] MEDS ORDERED: Dextrose 50% Abboject 50 ML SYRINGE IVP PRN (18:53)
[2018-01-08] MEDS: Ipratropium Bromide 2.5 ml Neb NEB SCH (20:12)
[2018-01-08 20:35] VITALS: BP 148/67; TEMP 97.9
[2018-01-08] MEDS ORDERED: Losartan Potassium 50 MG TAB PO SCH (21:00)
[2018-01-08] MEDS ORDERED: traMADol HCl 50 MG TAB PO SCH (21:00)
[2018-01-08] MEDS ORDERED: Losartan 25 MG TAB PO SCH (21:00)
[2018-01-08] MEDS ORDERED: hydrALAZINE 25 MG TAB PO SCH (21:00)
[2018-01-08] MEDS ORDERED: Amiodarone 200 MG TAB PO SCH (21:00)
[2018-01-08] MEDS ORDERED: Gabapentin 300 MG CAP PO SCH (21:00)
[2018-01-08] MEDS ORDERED: Simvastatin 10 MG TAB PO SCH (21:00)
[2018-01-08] MEDS ORDERED: Aspirin 81 mg Enteric Coated Tablet PO SCH (21:00)
[2018-01-09] MEDS: Ipratropium Bromide 2.5 ml Neb NEB SCH (04:46)
[2018-01-09 05:02] LABS: #Eosinphils 0.1 thou/uL (0.0-0.7); #Lymphocytes 0.3 thou/uL (1.20-3.40); #Monocytes 0.4 thou/uL (0.11-0.59); #Neutrophils 6.6 thou/uL (1.40-6.50); %Basophils 0.3 % (0.0-1.0); %Eosinophils 1.2 % (0.0-10.0); %Lymphocytes 4.4 % (21.0-51.0); %Monocytes 5.8 % (0.0-10.0); %Neutrophils 88.3 % (42.0-75.0); Hemoglobin 10.8 g/dL (14.0-18.0); Mean Corpuscular Hemoglobin 26.9 pg (27.0-31.0); Mean Corpuscular Volume 89.9 fl (80.0-94.0); Mean Platelet Volume 6.2 fL (7.4-10.4); Platelet Count 166 thou/uL (130-400); RBC Distribution Width 16.5 % (11.5-14.5); White Blood Cell (WBC) Count 7.5 thou/uL (4.8-10.8)
[2018-01-09 05:06] LABS: MDiff Complete? YES; Manual Diff?? NO
[2018-01-09 05:22] LABS: ALT (SGPT) 45 U/L (8-55); AST (SGOT) 33 U/L (5-34); Albumin 3.7 g/dL (3.4-4.8); Alkaline Phosphatase 60 U/L (40-150); Anion Gap 13 mmol/L (10-20); BUN (Urea Nitrogen) 25 mg/dL (8.4-25.7); Bilirubin, Total 0.6 mg/dL (0.2-1.2); Calc. Creatinine Clearance 85 mL/min (70-130); Carbon Dioxide 37 mmol/L (23-31); Chloride 94 mmol/L (98-107); Estimated GFR-MDRD 44; Globulin 2.7 g/dL (2.4-3.5); Glucose 168 mg/dL (83-110); Potassium 4.4 mmol/L (3.5-5.1); Protein, Total 6.4 g/dL (5.8-8.1); Sodium 140 mmol/L (136-145)
[2018-01-09] MEDS ORDERED: Furosemide 40 MG TAB PO SCH (07:30)
--- NOTE | 2018-01-09 08:37 | RAD ---
FRONTAL RADIOGRAPH CHEST: DATE: 01/09/18. TIME: 5:02 a.m. COMPARISON: 01/05/18. HISTORY: Respiratory distress. FINDINGS: Linear increased interstitial density noted in bilateral perihilar regions suggesting interstitial ed kim and/or interstitial infectious pneumonitis. There is no pneumothorax seen. There is increased density in the left lung base suggesting partial consolidation/collapse of the lef t lower lobe and/or left pleural effusion, poorly assessed on this examination secondary to patient p ositioning, portable technique, and body habitus. Findings are suspicious for infectious pneumonitis /aspiration and/or pleural effusion with volume loss within the right base. Recommend PA and lateral chest imaging. IMPRESSION: Findings suggesting interval development of pulmonary edema. Infectious pneumonitis is a possibility , particularly in the right lung base. Evaluation is limited and thus PA and lateral chest imaging i s advised. POS: [facility]
[2018-01-09] MEDS ORDERED: Fenofibrate Nanocrystallized 145 MG TAB PO SCH (09:00)
[2018-01-09] MEDS ORDERED: Famotidine 20 MG TAB PO SCH (09:00)
[2018-01-09] MEDS ORDERED: Levemir Flexpen 100 UNITS/ML PEN SC SCH (09:00)
== END 2018-01-09 05:10 | disposition short-term general hospital (02) | DRG 948 ==
LOC: NAV ACUTE 16:37
PROVIDERS: ADMIT Internal Medicine; ATTEND Internal Medicine
DX: R53.81 Other malaise (principal); J96.11 Chronic respiratory failure with hypoxia; Z68.41 Body mass index [BMI] 40.0-44.9, adult; J96.12 Chronic respiratory failure with hypercapnia; N18.5 Chronic kidney disease, stage 5; I12.0 Hypertensive chronic kidney disease with stage 5 chronic kidney disease or end stage renal disease; G47.33 Obstructive sleep apnea (adult) (pediatric); Z99.81 Dependence on supplemental oxygen; E66.01 Morbid (severe) obesity due to excess calories; I87.8 Other specified disorders of veins; L97.529 Non-pressure chronic ulcer of other part of left foot with unspecified severity; L97.519 Non-pressure chronic ulcer of other part of right foot with unspecified severity; E78.5 Hyperlipidemia, unspecified; E11.22 Type 2 diabetes mellitus with diabetic chronic kidney disease; Z85.038 Personal history of other malignant neoplasm of large intestine; Z87.891 Personal history of nicotine dependence; Z79.82 Long term (current) use of aspirin; Z79.4 Long term (current) use of insulin; Z79.899 Other long term (current) drug therapy
CPT/HCPCS: 36415; 36416; 71045; 80053; 83880; 85025; J7620; J7644

== ENCOUNTER 2018-01-09 05:10 | Emergency (ER) | payer MEDICARE ==
[2018-01-09] MEDS ORDERED: Furosemide 40 MG/4 ML VIAL ONE (05:53)
[2018-01-09] MEDS ORDERED: Furosemide 20 MG/2 ML VIAL ONE (05:53)
[2018-01-09 05:54] LABS: Troponin I 0.014 ng/mL (< 0.028)
[2018-01-09 06:08] LABS: CKMB 9.9 ng/mL (0-6.6)
[2018-01-09] MEDS ORDERED: Dexamethasone 4 mg/ml Vial ONE (06:41)
== END 2018-01-09 06:48 | disposition short-term general hospital (02) ==
LOC: NAV ERS 05:10
DX: I11.0 Hypertensive heart disease with heart failure (principal); I50.9 Heart failure, unspecified; I25.10 Atherosclerotic heart disease of native coronary artery without angina pectoris; J44.9 Chronic obstructive pulmonary disease, unspecified; E11.9 Type 2 diabetes mellitus without complications; G47.39 Other sleep apnea; E78.5 Hyperlipidemia, unspecified; Z87.891 Personal history of nicotine dependence; Z87.01 Personal history of pneumonia (recurrent); Z79.4 Long term (current) use of insulin
CPT/HCPCS: 82553; 84484; 93005; 94760; 96374; J1100; J1940